=== PATIENT | male | born 1965 | race Caucasian/White ===

== ENCOUNTER 2017-11-23 17:18 | Outpatient (CLI) | payer OTHER ==
[~2017-11-23 17:18] MED LIST: CATAFLAM50 MG PO; FLONASE16 GM NASAL; GILTUSS TR TAB1 EACH PO; HYZAAR 100-251 EACH PO; HYZAAR 100-251 UDTAB; HYZAAR 100-251 UDTAB PO; HYZAAR 100/25 T1 TAB PO; INTESTINEX1 CA1 PO; PROTONIX40 MG PO; ZYRTEC10 MG PO
== END 2017-11-23 17:23 | disposition home or self-care (01) ==
LOC: LAB 17:18
DX: Z00.01 Encounter for general adult medical examination with abnormal findings (principal); I10 Essential (primary) hypertension; E03.9 Hypothyroidism, unspecified; E78.2 Mixed hyperlipidemia; Z12.5 Encounter for screening for malignant neoplasm of prostate; Z12.11 Encounter for screening for malignant neoplasm of colon; R73.09 Other abnormal glucose

== ENCOUNTER 2019-10-18 16:45 | Emergency (ER) | payer OTHER ==
[~2019-10-18] VITALS: Ht 170.2 cm; Wt 80.7 kg
== END 2019-10-18 17:51 | disposition home or self-care (01) ==
LOC: ER 16:45
DX: S90.31XA Contusion of right foot, initial encounter (principal); W01.198A Fall on same level from slipping, tripping and stumbling with subsequent striking against other object, initial encounter; Y93.01 Activity, walking, marching and hiking; Y92.89 Other specified places as the place of occurrence of the external cause; Y99.8 Other external cause status

== ENCOUNTER → 2021-01-20 15:18 | Outpatient (CLI) | payer OTHER ==
[~2021-01-20 15:18] MED LIST changes: +TOBRAMYCIN-DEXAM5 ML OP
== END | disposition home or self-care (01) ==
LOC: LAB 15:18
PROVIDERS: ATTEND Internal Medicine
DX: D64.89 Other specified anemias (principal); R10.84 Generalized abdominal pain; E03.8 Other specified hypothyroidism; E78.49 Other hyperlipidemia; R07.89 Other chest pain; R80.8 Other proteinuria; E11.9 Type 2 diabetes mellitus without complications

== ENCOUNTER 2021-01-23 17:34 | Emergency (ER) | payer OTHER ==
[~2021-01-23] VITALS: Ht 167.6 cm; Wt 81.6 kg
[~2021-01-23 17:34] MED LIST changes: -TOBRAMYCIN-DEXAM5 ML OP
[2021-01-23] MEDS ORDERED: TOBRAMYCIN-DEXAM5 ML OP (18:42)
== END 2021-01-24 | disposition home or self-care (01) ==
LOC: ER 17:34
DX: H10.89 Other conjunctivitis (principal)

== ENCOUNTER 2022-03-08 14:10 | Outpatient (CLI) | payer OTHER ==
[~2022-03-08 14:10] MED LIST changes: +TOBRAMYCIN-DEXAM5 ML OP
== END 2022-03-08 14:20 | disposition home or self-care (01) ==
LOC: PPH VACUNA 14:10
PROVIDERS: ATTEND Emergency Medicine Pediatric Emergency Medicine
DX: Z23 Encounter for immunization (principal)

== ENCOUNTER 2022-04-06 16:00 | Outpatient (CLI) | payer OTHER | END 2022-04-06 16:05 | disposition home or self-care (01) | LOC: PPH VACUNA 16:00 | PROVIDERS: ATTEND Emergency Medicine Pediatric Emergency Medicine | DX: Z23 Encounter for immunization (principal) ==

== ENCOUNTER 2023-02-23 22:57 | Emergency (ER) | payer OTHER ==
[~2023-02-23] VITALS: Ht 170.2 cm; Wt 81.6 kg
[2023-02-23] MEDS ORDERED: ATACAND4 MG (23:04)
== END 2023-02-24 01:35 | disposition home or self-care (01) ==
LOC: ER 22:57
PROVIDERS: Emergency Medicine
DX: I10 Essential (primary) hypertension (principal); Z88.2 Allergy status to sulfonamides

== ENCOUNTER 2023-04-20 13:50 | Outpatient (CLI) | payer OTHER ==
[~2023-04-20 13:50] MED LIST changes: +ATACAND4 MG; +CEPHALEXIN500 M1 PO; +ZOVIRAX800 MG PO
== END 2023-04-20 14:00 | disposition home or self-care (01) ==
LOC: PPH VACUNA 13:50
PROVIDERS: ATTEND Emergency Medicine Pediatric Emergency Medicine
DX: Z23 Encounter for immunization (principal)
CPT/HCPCS: 90686; G0008

== ENCOUNTER 2024-04-18 16:00 | Outpatient (CLI) | payer OTHER | END 2024-04-18 16:10 | disposition home or self-care (01) | LOC: PPH VACUNA 16:00 | PROVIDERS: ATTEND Emergency Medicine Pediatric Emergency Medicine | DX: Z23 Encounter for immunization (principal) ==

== ENCOUNTER 2024-07-16 15:52 | Outpatient (CLI) | payer OTHER | END 2024-07-16 17:23 | disposition home or self-care (01) | LOC: LAB 15:52 | PROVIDERS: ATTEND General Practice | DX: E79.0 Hyperuricemia without signs of inflammatory arthritis and tophaceous disease (principal) ==

== ENCOUNTER 2024-09-17 21:00 | Emergency (ER) | payer OTHER ==
[~2024-09-17] VITALS: Ht 162.6 cm; Wt 65.8 kg
[2024-09-17] MEDS ORDERED: CEFTRIAXONE SODIUM 1,000 MG VIAL IM STA (22:17)
[2024-09-17] MEDS ORDERED: CEFTRIAXONE SODIUM 1,000 MG VIAL ONE (22:20)
== END 2024-09-18 00:12 | disposition home or self-care (01) ==
LOC: ER 21:00
DX: S80.861A Insect bite (nonvenomous), right lower leg, initial encounter (principal); W57.XXXA Bitten or stung by nonvenomous insect and other nonvenomous arthropods, initial encounter; Y93.9 Activity, unspecified; Y92.9 Unspecified place or not applicable; Y99.9 Unspecified external cause status; Z88.2 Allergy status to sulfonamides